=== PATIENT | female | born 1980 | race Caucasian/White ===

== ENCOUNTER 2020-06-06 09:47 | Outpatient (CLI) | payer BC ==
--- NOTE | 2020-06-06 11:26 | CT ---
CT BRAIN WITH AND WITHOUT IV CONTRAST: HISTORY: Headache, dizziness FINDINGS: No evidence of infarct, hemorrhage, mass, midline shift or abnormal extra axial fluid collections is seen. The ventricular size is normal and the basilar cisterns are patent. No abnormal postcontrast enhancement is seen. The bony calvarium is intact. The visualized paranasal sinuses are well-aerated. IMPRESSION: Normal exam
== END 2020-06-06 09:48 | disposition home or self-care (01) ==
LOC: SCSCT 09:47
PROVIDERS: ATTEND Family Medicine
DX: R51 Headache (principal)
CPT/HCPCS: 70470